=== PATIENT | female | born 1945 | race Caucasian/White ===

== ENCOUNTER 2016-09-30 17:18 | Inpatient (IN) | payer MEDICARE, MEDICAID ==
[~2016-09-30] VITALS: Ht 170.2 cm; Wt 107.2 kg
--- NOTE | ~2016-09-30 | HP ---
PATIENT'S NAME: NEGRA MANCINI [facility] AGE: 71 Y [address] ROOM: [id number] [place], [place] [address] LOCATION: GPCU ADMIT DATE: 09/30/2016 History & Physical DISCHARGE DATE: FAMILY PHYSICIAN: PHYSICIAN, UNKNOWN ATTENDING PHYSICIAN: SHILO HAINES V DATE OF SERVICE: CHIEF COMPLAINT: Dizziness, shortness of breath, constipation, and anuria. HISTORY OF PRESENT ILLNESS: The patient is a 71-year-old female with multiple medical problems further characterized below. They are most significant for atrial fibrillation, on anticoagulation and digoxin. The patient presented to the ER today with complaints of 2 days of decreased oral intake due to nausea, constipation, shortness of breath, as well as near-syncope. In the ER, the patient was found to have a potassium of 6.6, heart rate of 40s, with an EKG demonstrating junctional rhythm with slightly wide QRS and peaked T-waves and a digoxin level of 0.93. The patient has been seen by cage unloader Dr. Cohen and has also been treated by the ER department for her presentation. She has received IV insulin, dextrose, calcium gluconate, 2 g Digibind, 30 g of Kayexalate, and was started on normal saline. Her blood pressure was stable on admission and remained so now. She was initially anuric, but with placement of Sands and initiation of IV hydration, her urine output is picking up. Of note, the patient had a recent admission for a very similar presentation with digoxin toxicity, acute kidney injury, and symptomatic bradycardia. She says that she feels somewhat better though she is still quite weak, thirsty, and hungry. She denies any chest pain, vomiting, or diaphoresis associated with her presentation. REVIEW OF SYSTEMS: All 10 systems have been reviewed and are negative aside from pertinent positives mentioned above. PAST MEDICAL HISTORY: Type 2 diabetes, paroxysmal atrial fibrillation, on long-term anticoagulation, COPD with chronic hypoxic respiratory failure on 3 L of oxygen at all times, essential hypertension, and chronic diastolic congestive heart failure. PATIENT'S NAME: NEGRA MNACINI [facility] AGE: 71 Y [address] ROOM: [id number] [place], [place] [address] LOCATION: GPCU ADMIT DATE: 09/30/2016 History & Physical DISCHARGE DATE: FAMILY PHYSICIAN: PHYSICIAN, UNKNOWN ATTENDING PHYSICIAN: SHILO HAINES V PAST SURGICAL HISTORY: Significant for prior C-sections and total abdominal hysterectomy and oophorectomy. SOCIAL HISTORY: The patient was a heavy user of tobacco, but quit 5-6 years ago. No ongoing toxic habits. FAMILY HISTORY: Reviewed in detail and is noncontributory due to known underlying etiology for her presentation and advanced age and multiple medical problems. CURRENT MEDICATIONS: 1. Acetaminophen. 2. Amitriptyline. 3. Brovana. 4. Aspirin. 5. Bisacodyl. 6. Budesonide. 7. Bumex 1 mg daily. 8. Clonidine 0.1 mg b.i.d. 9. Digoxin 125. 10. Diphenhydramine 25. 11. Colace 100 twice a day. 12. Fluticasone nasal. 13. Guaifenesin. 14. Insulin by sliding scale. 15. Losartan. 16. Levemir 15 at bedtime. 17. Xopenex. 18. Magnesium oxide. 19. Meclizine. 20. Metoprolol 50 twice a day. 21. Singulair. 22. Nitroglycerin. 23. Olopatadine. 24. Polyethylene glycol. 25. Triamcinolone. 26. External solution. 27. Coumadin. PHYSICAL EXAMINATION: VITAL SIGNS: At this point, her heart rate is 41, blood pressure is 143/64, satting 99% on 2 L nasal cannula, afebrile, and respirations are 16. GENERAL: Appears as a chronically ill, elderly female, in no acute distress. PATIENT'S NAME: NEGRA MANCINI [facility] AGE: 71 Y [address] ROOM: [id number] [place], [place] [address] LOCATION: [facility] ADMIT DATE: 09/30/2016 History & Physical DISCHARGE DATE: FAMILY PHYSICIAN: PHYSICIAN, UNKNOWN ATTENDING PHYSICIAN: SHILO HAINES V NEUROLOGICAL: Exam is nonfocal. EYES: Exam shows pupils are equal and reactive to light. LYMPHATICS: Exam shows no cervical lymphadenopathy. ENDOCRINE: Exam shows no thyromegaly. LUNGS: Exam is diminished breath sounds in all [place], but no crackles. HEART: Exam reveals a profound bradycardia with no appreciable murmurs, gallops, or rubs. EXTREMITIES: There is 1+ bilateral lower extremity edema. SKIN: Warm and dry. PSYCHIATRIC: Reveals appropriate mood, cognition, and affect. MUSCULOSKELETAL: Exam is unremarkable. LABORATORY DATA: Studies available so far are pro-BNP is 1377, which is at baseline. Two sets of cardiac enzymes are negative. Potassium is 6.6, creatinine is 2.1. Unremarkable CBC. Digoxin level is 0.9. Chest x-ray shows chronic scarring, but no acute changes. EKG shows junctional bradycardia at 41 beats per minute with slight QRS widening and peaked T-waves in multiple leads. ASSESSMENT AND PLAN: This is a 71-year-old female who will be admitted with: 1. Symptomatic bradycardia due to digoxin toxicity. We will admit the patient to the Progressive Care Unit. We will monitor her heart rate. At this point, while she is symptomatic, her blood pressure is well- supported, and I do not believe she will benefit from a dopamine drip though that is an option for us if she becomes hemodynamically compromised. 2. Relative Digoxin toxicity in the setting of hyperkalemia. The patient has received Digibind. 3. Hyperkalemia/acute kidney injury. I think these are entirely related to acute volume depletion combined with multiple nephrotoxic medications including ARB and Bumex. The patient will be hydrated as her volume status tolerates. We will serially monitor her renal function and potassium. A Renal consultation is in progress and we will follow up those recommendations. 4. Atrial fibrillation. At this point, we will hold off all ruthy blockers including metoprolol and digoxin. 5. Long-term use of anticoagulation. We will continue the patient on Coumadin for the time-being and attempt for a normal therapeutic INR. 6. Chronic hypoxic respiratory failure. We will continue the patient on oxygen and her inhalers. 7. Type 2 diabetes. We will hold off on her long-acting insulin and put her on a sliding scale keeping in mind her diminished renal function. Additional management will depend on clinical course. Time dedicated to this patient encounter is 35 minutes. PATIENT'S NAME: NEGRA MANCINI [facility] AGE: 71 Y [address] ROOM: [place] [address] LOCATION: GPCU ADMIT DATE: 09/30/2016 History & Physical DISCHARGE DATE: FAMILY PHYSICIAN: PHYSICIAN, UNKNOWN ATTENDING PHYSICIAN: SHILO HAINES V MD ELIF MOREL/alicia /[id number] D: [id number] T: [id number] HISTORY & PHYSICAL
--- NOTE | ~2016-09-30 | DS ---
PATIENT'S NAME: NEGRA MANCINI [facility] AGE: 71 Y [address] ROOM: [place] [address] LOCATION: GPCU ADMIT DATE: 09/30/2016 Discharge Summary DISCHARGE DATE: 10/13/2016 FAMILY PHYSICIAN: Physician, Unknown ATTENDING PHYSICIAN: Gopal Gross V ATTENDING PHYSICIAN: David Ellison MD PRIMARY CARE PHYSICIAN: Saravanan Stevenson PA-C. FINAL DIAGNOSES: 1. Hyperkalemia, resolved. 2. Digoxin toxicity, resolved. 3. Atrial fibrillation, rate controlled. 4. Long-term anticoagulation. 5. Acute on chronic hypoxic respiratory failure, resolved. 6. History of chronic obstructive pulmonary disease. 7. Diabetes mellitus. 8. Decompensated diastolic congestive heart failure, resolved. 9. Pulmonary edema, resolved. 10. Acute kidney injury on chronic kidney disease 3, resolved. CONSULTATIONS: 1. Nephrology, Dr. Garcia. 2. Pulmonology, Dr. Oropeza. 3. Cardiology Dr. Clinton Anthony. PROCEDURES: None. REASON FOR ADMISSION: This is a 71-year-old female, who presented with dizziness, shortness of breath, constipation, and anuria. The patient was evaluated and was found to have symptomatic bradycardia. She was then thought to have digoxin toxicity and was further admitted for evaluation and management. Please see Dr. Gross' admission H and P for further details. DIAGNOSTIC STUDIES: A transthoracic echocardiogram was done during this admission showed ejection fraction of 65%. It showed grade 3 restrictive diastolic dysfunction, moderate concentric left ventricular hypertrophy, mildly dilated right ventricle, and dilated left atrium and right atrium were noted. Moderate aortic stenosis was noted as well. Mild to moderate tricuspid regurgitation and severe pulmonary hypertension with RVSP 62 mmHg noted. Trivial posterior pericardial effusion was detected. ABGs were done during this admission and showed hypercapnia with pCO2 of 77 initially and subsequently was 68, pO2 was 62 and subsequently 85. Serial PATIENT'S NAME: NEGRA MANCINI [facility] AGE: 71 Y [address] ROOM: [place] [address] LOCATION: GPCU ADMIT DATE: 09/30/2016 Discharge Summary DISCHARGE DATE: 10/13/2016 FAMILY PHYSICIAN: Physician, Unknown ATTENDING PHYSICIAN: Gopal Gross V Accu-Cheks were done and were in the range of 111 to 207. Serial CBC showed essentially normal white count, hemoglobin, hematocrit, and platelet levels throughout the course of this hospitalization. Serial BMPs were done. The patient's potassium was 6.6 on admission, after treatment was normal, and at the time of discharge stable at 4.0. Other electrolytes were normal. The patient's creatinine was 2.1 on admission, and the patient had acute kidney injury. The patient's acute kidney injury had resolved, and the patient's creatinine was 1.3 at the time of discharge. BUN was in the range of 26 to 36. Blood glucose is as mentioned above. Magnesium level 2.0. Liver function tests were normal. GFR 40 at discharge. Digoxin level was done on admission and was 0.93, subsequently digoxin level was 0.55. Digoxin was discontinued. Hemoglobin A1c 7.7. INR 1.96 on admission, and at the time of discharge was therapeutic at 2.17. PTT 38. UA showed rare bacteria. Urine creatinine random 295, urine sodium random of 9. Procalcitonin level 0.19 and subsequently was 0.11. Urine potassium 70.0. CK-MB 0.8. D-dimer 0.29. Chest x-ray was done on admission and several occasions during this admission. Chest x-ray showed enlargement of the cardiac silhouette, likely reflecting cardiomegaly or presence of pericardial fluid, vascular congestion with interstitial prominence, likely reflecting interstitial edema was noted. For increased oxygen demands, chest x-ray was repeated and showed worsening of radiographic appearance with findings of congestive heart failure, fluid overload with cardiac enlargement, vascular congestion, bilateral edema, and bilateral pleural fluid collection. The patient had a swallow study done, that showed no aspiration of swallowed materials and no significant retention of swallowed materials at the tongue base, vallecula, or piriform sinuses. X-ray abdomen was done for nausea and vomiting and showed no free air at the abdomen, nonspecific bowel gas pattern was noted. The bowel did not appear to be obstructed. Oral contrast material from prior imaging was noted in the bowel loops. The patient had a CT chest without contrast, that showed bilateral airspace lung disease likely infectious or edema. Cardiomegaly and bilateral pleural effusions were noted. Chest x-ray was later repeated and showed cardiomegaly, bilateral consolidation, and pleural effusion. Prior to discharge, chest x- ray was repeated again and showed improvement bilaterally with persistent abnormality, most likely reflecting fluid above. Blood cultures were drawn and were negative. Sputum culture showed many gram- positive cocci, many gram-positive rods, and many yeast with few gram-negative rods and rare epithelial cells. Normal respiratory joann was noted. Anaerobic culture was negative. PATIENT'S NAME: NEGRA MANCINI [facility] AGE: 71 Y [address] ROOM: [address] [address] LOCATION: GPCU ADMIT DATE: 09/30/2016 Discharge Summary DISCHARGE DATE: 10/13/2016 FAMILY PHYSICIAN: Physician, Unknown ATTENDING PHYSICIAN: Gopal Gross V [facility]: The patient was admitted for evaluation and management of dizziness, shortness of breath, and bradycardia. The patient was symptomatic at that point of time. She was thought to have digoxin toxicity and was given Digibind. She was also found to be hyperkalemic and was treated with calcium, normal saline, DuoNeb, and Lasix. The patient's junctional bradycardia then resolved. Cardiology was consulted and followed up with the patient. A transthoracic echocardiogram was done and findings are as above. The patient continued to do well from a cardiology standpoint. Her digoxin was discontinued and was not restarted. Her atrial fibrillation was rate controlled during this admission. The patient had anuria. Nephrology was consulted. Her urine output was closely monitored. She was placed on Lasix initially, subsequently she was placed on Diamox. She diuresed very well. Her chest x-ray had improved by the time of discharge. Her O2 requirement was at her baseline. There did not appear to be COPD exacerbation. This was likely acute diastolic CHF exacerbation. The patient also had acute kidney injury on admission. This was monitored very closely, and by the time of discharge, the patient's acute kidney injury had resolved. Her diuretic dose was adjusted given the acute kidney injury during this admission. Pulmonology was consulted. Dr. Oropeza thought that this was not likely COPD exacerbation. The patient's acute on chronic respiratory failure had improved, and she was down to her baseline of 3 L of oxygen. By the time of discharge, she was given breathing treatments during this admission. The patient continued to do well. She was ambulating with the help of a walker. She was then discharged and asked to follow up with her primary care physician. DISCHARGE INSTRUCTIONS: The patient discharged in a cardiac diet with 1800- kilocalorie ADA diet. Activities as tolerated. She uses a walker for assistance. Follow up with Saravanan Stevenson, PCP, in 2 to 3 days' time. Follow up with Clinton Anthony, Cardiology, in 2 weeks' time. Follow up with Dr. Oropeza in 1 month's time. Follow up with Nephrology, Dr. Garcia, in 1 week's time. The patient was discharged to home with Home Health. PCP to check a CBC and a BMP and a PT/INR. PCP to manage Coumadin based on PT/INR levels. O2 as needed to keep saturations 88% to 95%. The patient uses 3 L oxygen at all times at her baseline. DISCHARGE MEDICATIONS: Review of discharge medications: 1. Lopressor 12.5 mg p.o. b.i.d. 2. Lopressor 25 mg p.o. b.i.d., dose increased. PATIENT'S NAME: NEGRA MANCINI [facility] AGE: 71 Y [address] ROOM: [id number] [place] [id number] LOCATION: GPCU ADMIT DATE: 09/30/2016 Discharge Summary DISCHARGE DATE: 10/13/2016 FAMILY PHYSICIAN: , Melisa ATTENDING PHYSICIAN: Gopal Gross V 3. Digoxin was discontinued during this admission given digoxin toxicity. 4. Diamox 250 mg p.o. q.a.m. 5. Norvasc 10 mg p.o. daily. 6. Aspirin 81 mg p.o. daily. 7. Bumex 1 mg p.o. every 48 hours, dose decreased for acute kidney injury. PCP to manage and increase Bumex dose at followup given fluid volume status. 8. PCP also to consider discontinuing Diamox at followup. 9. Benadryl 25 mg p.o. q.h.s. 10. Colace 100 mg p.o. b.i.d. 11. Flonase 50 mcg 2 sprays nasally every day both nostrils. 12. Hydrocortisone cream one application topically 3 times daily p.r.n. hemorrhoids. 13. Guaifenesin 600 mg p.o. b.i.d. 14. NovoLog mild sliding scale insulin subcu before meals and at bedtime, new medication. 15. Levemir 10 units subcu every morning, dose decreased. 16. Ketotifen fumarate drops 1 drop ophthalmically every day both eyes. 17. Singulair 10 mg p.o. daily. 18. MiraLAX 17 g p.o. daily. 19. Coumadin 2.5 mg p.o. Wednesday, Wednesday, Wednesday. PCP to manage based on PT/INR levels. 20. Coumadin 2 mg p.o. Wednesday, Wednesday, , Wednesday. PCP to manage based on PT/INR levels. 21. Brovana inhalation twice daily one vial via nebulizer. 22. Pulmicort 1 vial inhalation twice daily 1 mg per 2 mL. 23. Spiriva HandiHaler 1 puff daily inhalation. 24. Tylenol 650 mg p.o. q.6 hours p.r.n. pain. 25. Meclizine 25 mg p.o. q.6 hours p.r.n. dizziness. 26. Xopenex HFA inhaler 45 mcg per inhalation 2 puffs inhalation twice daily p.r.n. shortness of breath. 27. Magnesium oxide 400 mg p.o. daily. 28. Elavil 50 mg p.o. q.h.s. 29. Nitrostat 0.4 mg sublingual as needed p.r.n. chest pain. 30. Triamcinolone cream 1 application topically twice daily p.r.n. rash on the hands. 31. Glucagon 1 mg subcu p.r.n. hypoglycemia. 32. Glucose tab 16 g p.o. p.r.n. hypoglycemia. This patient was managed by Hospitalist, Cardiology, Nephrology, and Pulmonology teams during this admission. DAVID ELLISON MD PATIENT'S NAME: NEGRA MANCINI [facility] AGE: 71 Y [address] ROOM: [place] [address] LOCATION: GPCU ADMIT DATE: 09/30/2016 Discharge Summary DISCHARGE DATE: 10/13/2016 FAMILY PHYSICIAN: Physician, Unknown ATTENDING PHYSICIAN: Gopal Gross V MT/modl /[id number] CC: Saravanan Stevenson PA-C d: 10/14/16 0401 t: 10/19/16 1818, DISCHARGE SUMMARY
--- NOTE | ~2016-09-30 | CON ---
PATIENT'S NAME: NEGRA MANCINI [facility] AGE: 71 Y [address] ROOM: [address] [place], [place] [address] LOCATION: GPCU ADMIT DATE: 09/30/2016 Consultation DISCHARGE DATE: FAMILY PHYSICIAN: PHYSICIAN, UNKNOWN ATTENDING PHYSICIAN: SHILO HAINES V DATE OF CONSULTATION: 09/30/2016 REFERRING PHYSICIAN: LV MORENO MD REFERRING PHYSICIAN: Shilo Haines MD. REASON FOR CONSULTATION: YESY, hyperkalemia, symptomatic bradycardia. HISTORY OF PRESENT ILLNESS: This 71-year-old female with history of atrial fibrillation, on long-term anticoagulation and digoxin; COPD; chronic respiratory failure on 2-3 L of oxygen at home; hypertension; diabetes type 2; presented to the ER with symptomatic bradycardia with heart rate in the 40s. Routine lab evaluation shows potassium of 6.6. Nephrology consultation has been called for hyperkalemia and symptomatic bradycardia. The patient had similar kind of presentation in late 2015 with digoxin toxicity and YESY. The patient was treated at that time conservatively along with Digibind antibody, the patient was placed on dopamine drip to increase the heart rate more than 50s; however, afterwards patient developed accelerated hypertension and needed management with multiple antihypertensive medications and the patient was discharged home. Today, the patient came with a creatinine of 2 with a baseline of 0.921. The patient mentioned that she was having nausea and vomiting and was having poor oral intake for the last few days, also noted that she is on Bumex 1 mg p.o. daily for fluid control secondary to her diastolic heart failure. She is also noted to be on lisinopril for blood pressure and possibly for heart failure too. During the presentation, her heart rate was in 40s with junctional rhythm with wide QRS and slightly peaked T-wave, but digoxin level was 0.93. The patient was being treated with IV insulin dextrose, calcium gluconate, and one vial of Digibind, 30 g of Kayexalate, and the patient was started on normal saline at 100 mL/hour. Urine output although was marginal in the beginning, but however started to pickle solution maker after initiation of IV hydration. During my evaluation, she says that she is feeling somewhat better; however, quite weak and hungry. No complain of chest pain, shortness of breath, orthopnea, palpitation, or any sign of fluid overload. Still has significant nausea, but no vomiting. No urinary symptoms including dysuria, urgency, frequency, but as mentioned above, she was having definitely decreased output at the time of presentation to the ER. REVIEW OF SYSTEMS: GENERAL: Feeling weak. No fevers, chills, or rigors. HEENT: No sore throat. No sinus congestion. CVS: No chest pain. No exertional shortness of breath. No leg swelling. RESPIRATORY: No shortness of breath. No cough. No wheezing. GENITOURINARY: No pain with urination. No increased frequency. No nocturia. GASTROINTESTINAL: No abdominal pain. No abdominal distention. Significant nausea, but no vomiting. NEUROLOGIC: No weakness. No seizures. SKIN: No rash. No itching. ALLERGIES: No seasonal allergy. No hayfever. ENDOCRINE: No heat intolerance. No cold intolerance. PSYCHIATRIC: No sadness. No crying spells. No history of panic attack. PATIENT'S NAME: NEGRA MANCINI [facility] AGE: 71 Y [address] ROOM: [address] [address] LOCATION: GPCU ADMIT DATE: 09/30/2016 Consultation DISCHARGE DATE: FAMILY PHYSICIAN: PHYSICIAN, UNKNOWN ATTENDING PHYSICIAN: SHILO HAINES V PAST MEDICAL HISTORY: 1. Hypertension. 2. Type 2 diabetes. 3. Paroxysmal atrial fibrillation, on long-term anticoagulation and digoxin. 4. COPD with chronic hypoxic respiratory failure on 2-3 L oxygen at home. 5. Chronic diastolic CHF. PAST SURGICAL HISTORY: Prior , abdominal hysterectomy and oophorectomy. SOCIAL HISTORY: She was a heavy smoker, stopped about 5-6 years ago. No ongoing smoking, alcohol, or IV drug abuse. FAMILY HISTORY: Noncontributory for kidney disease or any known dialysis. CURRENT MEDICATIONS: 1. Acetaminophen. 2. Amitriptyline. 3. Brovana. 4. Aspirin. 5. Bisacodyl. 6. Budesonide. 7. Bumex 1 mg daily. 8. Clonidine 0.1 mg b.i.d. 9. Digoxin 0.125 mg p.o. daily. 10. Diphenhydramine 25 daily. 11. Colace 100 twice a day. 12. Fluticasone nasal. 13. Guaifenesin. 14. Insulin by sliding scale. 15. Losartan. 16. Levemir. 17. Xopenex. 18. Magnesium oxide. 19. Meclizine. 20. Metoprolol 50 b.i.d. 21. Singulair. 22. Nitroglycerin. 23. Olopatadine. 24. Polyethylene glycol. 25. Triamcinolone. 26. External solution. 27. Coumadin. LABORATORY DATA: ProBNP 1377 at baseline. Cardiac enzyme negative x2. Potassium 6.6, creatinine 2.1. CBC unremarkable. Digoxin 0.9. Chest x-ray, chronic scarring, no acute changes. EKG junctional bradycardia at 41 beats per minute with slight QRS widening and peaked T-waves.PATIENT'S NAME: NEGRA MANCINI [facility] AGE: 71 Y [address] ROOM: [id number] [place] [id number] LOCATION: GPCU ADMIT DATE: 09/30/2016 Consultation DISCHARGE DATE: FAMILY PHYSICIAN: PHYSICIAN, UNKNOWN ATTENDING PHYSICIAN: SHILO HAINES V PHYSICAL EXAMINATION: VITAL SIGNS: Blood pressure 140's/60's, heart rate is in 40s, saturating 99% on 2 L, afebrile, respiratory rate 16 to 18. GENERAL: Not in apparent distress. HEAD: Moist mucous membranes. Bilateral PERRLA, EOMI. NECK: No JVD, thyromegaly or lymphadenopathy. CVS: S1 and S2 normal, regular rate and rhythm. No murmur, rub, gallop. CHEST: Bilateral air entry equal. No wheeze or rales. ABDOMEN: Soft, nontender, nondistended. Bowel sounds present. EXTREMITIES: No cyanosis, clubbing, jaundice. No dependent edema. MUSCULOSKELETAL: No limitation of range of motion. SKIN: No pallor, cyanosis, icterus. BOX REPAIRER: Alert and oriented x3. No gross findings.. ASSESSMENT AND PLAN: 1. Symptomatic bradycardia possibly due to digoxin toxicity. Although, digoxin level was not above the acceptable range but with hyperkalemia, the patient can present with the digoxin toxicity. The patient already has received Digibind in the ER, hemodynamically stable. The patient needs continuous cardiac monitoring and telemetry. We will hold off from dopamine drip as patient is hemodynamically stable. 2. Hyperkalemia with acute kidney injury, possibly secondary to prerenal along with ORESTES-blocking agent while being tried with poor p.o. oral intake and diuretic on board. We will hydrate the patient with 1 L fluid bolus now and maintaining the fluid at 100 mL/h. We may repeat the bolus, if the urine output does not pickle solution maker sufficiently. Once the patient is adequately hydrated, we may try to give rather heavy dose of loop diuretic to help in calluses. The patient needs to have close monitoring of the potassium and renal function, with repeat her renal panel at least every six hourly. I do not see any reason for dialysis at this point, because the patient is making some urine, appears to be dry and unclear kidney function. Her creatinine is currently 2, so probably the patient will improve with adequate volume resuscitation and conservative management. 3. Atrial fibrillation. Hold off all AV ruthy blocking agent. Especially in context of significant bradycardia and junctional rhythm. Long-term anticoagulation, the patient is on Coumadin for the time being, please check INR. 4. Chronic obstructive pulmonary disease with chronic hypoxic respiratory failure. We will continue to do 3 L of oxygen and inhalers as needed. 5. Type 2 diabetes. Long-acting insulin has been put on hold by the primary team and has been placed on a sliding scale. We will defer that to primary. Thank you for allowing me to participate in this patient's care. We will closely monitor the patient's progress along with you. HISEKH JENNIFER CARBAJAL MD /modl /[id number] d: 10/01/16 1824 t: 10/05/16 1539, CONSULTATION REPORT
--- NOTE | ~2016-09-30 | CON ---
PATIENT'S NAME: NEGRA MANCINI [facility] AGE: 71 Y [address] ROOM: [address] [place], [place] [address] LOCATION: GPCU ADMIT DATE: 09/30/2016 Consultation DISCHARGE DATE: FAMILY PHYSICIAN: PHYSICIAN, UNKNOWN ATTENDING PHYSICIAN: SHILO HAINES V DATE OF CONSULTATION: 09/30/2016 REFERRING PHYSICIAN: LV MORENO MD REQUESTING PROVIDER: Dr. Andrade from the ER. REASON FOR CONSULTATION: Hyperkalemia. HISTORY OF PRESENT ILLNESS: The patient actually sees Dr. Anthony and I am seeing the patient because I am on-call today. She is a very pleasant 71-year-old female, who has history of bradycardia as well as dizziness in the past. She also has history of paroxysmal atrial fibrillation. She has had numerous admissions for digoxin toxicity in the past. She comes in today because she is feeling slightly short of breath, worse than her baseline. She also complains of feeling dizzy, inability to void, and nausea as well as constipation. She reports feeling quite fatigued and finally decided to come to the ER because she has not had any urine output. She did not take her Bumex today. She is on Coumadin for anticoagulation. Her last admission was in March 2016 when she was admitted with digoxin toxicity and her level at that time was 4.97, potassium was 5.6, she was given Digibind and dopamine to help keep her heart rate up. This admission, she comes in again and the clinical suspicion is digoxin toxicity given hyperkalemia, acute renal failure, and junctional escape rhythm in the 30s. We will empirically treat her with Digibind based on chronic level of 1, for which 40 mg of Digibind is recommended. She has been treated for hyperkalemia and received calcium gluconate as well as Kayexalate, albuterol inhaler in the emergency room, and her heart rate now is in the 40s. She is alert and oriented. She is not in any apparent distress. She does not seem confused. She is hemodynamically stable. She also has history of oxygen-dependent COPD as well as diastolic heart failure, morbid obesity, CKD stage III, history of TIA, and pulmonary hypertension as well. No fevers, chills, or rash. No cough or sputum production. No PND, worsening lower extremity, or orthopnea. PATIENT'S NAME: NEGRA MANCINI [facility] AGE: 71 Y [address] ROOM: [place] [id number] LOCATION: GPCU ADMIT DATE: 09/30/2016 Consultation DISCHARGE DATE: FAMILY PHYSICIAN: PHYSICIAN, UNKNOWN ATTENDING PHYSICIAN: SHILO HAINES V Her primary care physician actually restarted her on digoxin 125 mcg daily. REVIEW OF SYSTEMS: A 10-point review of systems discussed with the patient. Pertinent positives and negatives as mentioned in the history of presenting illness. PAST MEDICAL HISTORY: 1. Chronic permanent atrial fibrillation, on long-term anticoagulation with Coumadin. 2. Diastolic CHF. 3. COPD, O2 dependent. 4. Morbid obesity. 5. CKD stage III. 6. History of TIA. 7. History of pulmonary hypertension. 8. Essential hypertension. 9. Long-term anticoagulation with warfarin. 10. Bilateral hearing loss. PAST SURGICAL HISTORY: Appendectomy, T and A, , total abdominal hysterectomy, bilateral oophorectomy at age 41, fractured left toe and collarbone, and history of cardioversion in 2013. ALLERGIES: PENICILLIN, TETRACYCLINE, LASIX, QUINOLONES, KIWIS, BANANAS, AND AVOCADOS. HOME MEDICATIONS: 1. Tylenol p.r.n. 2. Amitriptyline 100 daily. 3. Brovana inhalers 2 times a day 2 puffs. 4. Aspirin 81 daily. 5. Bisacodyl 10 p.r.n. 6. Bumex 1 mg b.i.d. 7. Clonidine 0.1 mg b.i.d. 8. Digoxin 125 mcg daily. 9. Benadryl p.r.n. at bedtime. 10. Docusate 200 mg daily. 11. Fluticasone nasal inhaler 2 sprays in each nostril. 12. Guaifenesin 1 b.i.d. 13. Insulin p.r.n. per sliding scale. 14. Losartan 100 daily. 15. Insulin Levemir 15 units at bedtime. 16. Mag-Ox once daily. PATIENT'S NAME: NEGRA MANCINI [facility] AGE: 71 Y [address] ROOM: [place] [id number] LOCATION: GPCU ADMIT DATE: 09/30/2016 Consultation DISCHARGE DATE: FAMILY PHYSICIAN: PHYSICIAN, UNKNOWN ATTENDING PHYSICIAN: SHILO HAINES V 17. Meclizine p.r.n. 18. Metoprolol 25 mg p.o. b.i.d. 19. Singulair 10 mg daily. 20. Nitroglycerin sublingual p.r.n. 21. Olopatadine ophthalmic eye solution daily. 22. Oxygen 3 L per nasal cannula. 23. MiraLax p.r.n. 24. Triamcinolone 17 g p.r.n. 25. Warfarin 2.5 mg daily. SOCIAL HISTORY: Former smoker, she smoked for 20 years, she quit in 2011. She is . FAMILY HISTORY: Father of an IA at age 64. No sudden cardiac . PHYSICAL EXAMINATION: VITAL SIGNS: Blood pressure is 151/63, weight is 112, pulse is 42, respirations 24, afebrile, and O2 saturation 99% on 2 L. NECK: Supple. HEENT: Eyes: No jaundice. White. Head: Atraumatic. HEART: S1 and S2. Bradycardic. No murmurs, gallops, or rubs. LUNGS: Clear to auscultation bilaterally. ABDOMEN: Soft. Obese. EXTREMITIES: Mild lower extremity edema. NEURO: Grossly intact. Able to move all extremities against gravity. Alert and oriented x3. No apparent distress. PSYCH: Appropriate mood. IMAGING: Echocardiogram from January 2016 showed normal LV systolic function, 60% to 65%. Moderate diastolic dysfunction. Mild aortic valve stenosis. Left atrium moderately dilated. LABORATORY DATA: Sodium 135, potassium 6.6, chloride 100, CO2 of 27, glucose 146, BUN 34, and creatinine 2.1. EGFR is 23. Digoxin level is 0.93. ProBNP 1377. CPK 32. CK-MB 0.8. Troponin I less than 0.04. WBC is 10.9, H and H are 10 and 35.2, and platelets are 222. INR is 1.96. IMPRESSION: 1. Junctional bradycardia in the setting of acute on chronic renal failure as well as hyperkalemia with a level of 6.6 with associated nausea, decreased urine output, and dehydration. Pt has digoxin toxicity. PATIENT'S NAME: NEGRA MANCINI [facility] AGE: 71 Y [address] ROOM: [address] [place], [place] [address] [facility] ADMIT DATE: 09/30/2016 Consultation DISCHARGE DATE: FAMILY PHYSICIAN: PHYSICIAN, UNKNOWN ATTENDING PHYSICIAN: SHILO HAINES V 2. Digoxin toxicity. 3. Dehydration. 4. History of chronic diastolic congestive heart failure, does not appear to be volume overloaded on exam. 5. Acute on chronic renal failure. 6. Paroxysmal atrial fibrillation. 7. Long-term anticoagulation with Coumadin. 8. History of pulmonary hypertension. 9. Mild aortic valve stenosis. PLAN: 1. At this time, we will treat her with digoxin toxicity based on her level of 0.93 and her weight and chronic toxicity. The dose of the Digifab is 40 mg IV, so we will go ahead and give that over 30 minutes. In terms of hyperkalemia, the ER physician has already corrected it with calcium gluconate as well as albuterol inhaler and Kayexalate. Recommend Nephrology consultation for acute on chronic renal failure. 2. She appears dehydrated. I will give her normal saline 100 mL for 1 L and recheck her labs in a.m. I do not think she needs temporary pacemaker at this time given her hemodynamic stability as well as her presentation, she is alert and oriented, and is not exhibiting any instability from her junctional rhythm in the 40s. I suspect all of this will improve once she gets her Digibind as well as her potassium levels are corrected. Thank you very much for allowing us to participate in the care of Ms. Mancini. We will continue to follow her. REYNALDO KAT MD AT/modl /[id number] d: 10/01/166 t: 10/02/16 1410, CONSULTATION REPORT
--- NOTE | ~2016-09-30 | CON ---
PATIENT'S NAME: PETTY MAYTE [facility] AGE: 71 Y [address] ROOM: [address] [place], [place] [address] LOCATION: GPCU ADMIT DATE: 09/30/2016 Consultation DISCHARGE DATE: 10/13/2016 FAMILY PHYSICIAN: Physician, Unknown ATTENDING PHYSICIAN: Gopal Gross V DATE OF CONSULTATION: 10/06/2016 REFERRING PHYSICIAN: Marlon Green MD INDICATION: Acute on chronic respiratory failure with COPD and pulmonary hypertension. HISTORY OF PRESENT ILLNESS: This 71-year-old female initially admitted for dehydration, nausea, digitoxicity, and bradycardia. She was rehydrated because of the aforementioned issues and is now requiring BiPAP. She was initially brought in on nasal cannula and then transferred to [facility] and then now subsequently BiPAP. Of note, the patient did receive Xanax and Haldol on top of the fluid resuscitation yesterday. She has a history of COPD and is a former smoker at one pack per day for 25 years and quit 6 years ago. She also has a history of atrial fibrillation with long-term anticoagulation; obesity; chronic respiratory failure for years with typically uses 3 L per nasal cannula continuously; severe pulmonary hypertension with last RVSP known at 62, EF is 65%, and aortic stenosis. It is also documented that she has cor pulmonale with dilated right ventricle and bilateral atrial enlargement. Currently, the patient reports increased shortness of breath over the last 2 weeks. She has had occasional dry cough, but is nothing worse than her baseline. She denies any wheezing, hemoptysis, or edema. She denies any history of PFTs. A CT of the chest in 2014 showed a 3 mm nodule in the left upper lobe and bilateral apical scarring. Chest x-ray on the showed diffuse pulmonary edema with bilateral pleural effusions. PAST MEDICAL HISTORY: Type 2 diabetes; paroxysmal atrial fibrillation, on long-term anticoagulation; COPD; chronic respiratory failure; hypertension; diastolic heart failure; cor pulmonale; and pulmonary hypertension. ALLERGIES: SEE AUG. MEDICATIONS: See AUG. FAMILY HISTORY: Negative for lung disease or heart disease. PATIENT'S NAME: PETTY MAYTE [facility] AGE: 71 Y [address] ROOM: [address] [address] LOCATION: GPCU ADMIT DATE: 09/30/2016 Consultation DISCHARGE DATE: 10/13/2016 FAMILY PHYSICIAN: Physician, Unknown ATTENDING PHYSICIAN: Gopal Gross V SOCIAL HISTORY: The patient was a former smoker and quit 6 years ago. She denies any alcohol or illicit drug use. REVIEW OF SYSTEMS: A 12-point review of systems negative except what is noted in the HPI. PHYSICAL EXAMINATION: VITAL SIGNS: Blood pressure 130/63, pulse 60, respirations 24, and temperature 99.2. Her weight is 117.2 kilos and on admission she was 114.8 kilos. I and O balance is slightly negative. She is currently on 6 L nasal cannula at 92%. GENERAL: This is a 71-year-old female, who is alert, oriented, appears in no acute distress at the time of exam. HEENT: Head normocephalic and atraumatic. Eyes clear. NECK: Supple. No adenopathy. No carotid bruits or JVD. LUNGS: Decreased breath sounds at the bases. HEART: Irregular rate and rhythm with a 2/6 systolic murmur. ABDOMEN: Soft, nontender, and nondistended. Bowel sounds x4. EXTREMITIES: No cyanosis or clubbing with 1+ bilateral lower extremity edema. DIAGNOSTIC DATA: ABG performed on the showed a pH of 7.29, pCO2 of 77, pO2 of 62, bicarb 37, and base excess 7.8. Repeat ABG after BiPAP shows a pH of 7.37, pCO2 of 68, pO2 of 85, bicarb 39.3, and base excess 11.4. Sodium 136, potassium 4.4, CO2 of 32, BUN 42, and creatinine 1.4. WBC 9.2, hemoglobin 8.4, hematocrit 28.8, and platelets 206. Albumin 2.2. ProBNP 2603. ASSESSMENT: 1. Acute on chronic hypercapnic respiratory failure with underlying chronic obstructive pulmonary disease, question severity, plus pulmonary hypertension and fluid overload. 2. Chronic obstructive pulmonary disease with unknown severity. 3. Pulmonary hypertension, most likely on into left heart disease. 4. Metabolic alkalosis, compensatory secondary to contraction. 5. Acute on chronic diastolic heart failure. PLAN: Would recommend continuing with aggressive IV diuresis. We will add IV Diamox today and start oral Diamox tomorrow. During this exam, we did have her weaned from BiPAP to nasal cannula and she seems to be tolerating this well. We will continue with BiPAP at night and as needed for increased shortness of breath or work of breathing. No antibiotics or steroids are needed as she does not appear to have COPD exacerbation. Recommend continuing with PATIENT'S NAME: NEGRA MANCINI [facility] AGE: 71 Y [address] ROOM: [place] [address] LOCATION: GPCU ADMIT DATE: 09/30/2016 Consultation DISCHARGE DATE: 10/13/2016 FAMILY PHYSICIAN: Physician, Unknown ATTENDING PHYSICIAN: Gopal Gross V budesonide, Brovana, Spiriva, and Xopenex as previously ordered. Further recommendations will be made pending the course of her stay. Thank you for the consult and opportunity to participate in the patient's care. RANCHO TORRE APRN FOR [employer] RHOADES MD MR/modl /[id number] d: 11/04/16 0111 t: 11/24/16 1400, CONSULTATION REPORT
--- NOTE | ~2016-09-30 | ER ---
PATIENT'S NAME: NEGRA MANCINI [facility] AGE: 71 Y [address] ROOM: [place] [address] LOCATION: GPCU ADMIT DATE: 09/30/2016 ER/Outpatient Report DISCHARGE DATE: FAMILY PHYSICIAN: PHYSICIAN, UNKNOWN ATTENDING PHYSICIAN: SHILO HAINES V Admission date and time documented in the medical record. I saw the patient when I came on duty at shift change at 1810 hours. CHIEF COMPLAINT: Shortness of breath, inability to void, and constipation. HISTORY OF PRESENT ILLNESS: The patient is a 71-year-old female, who has not been able to urinate since 0930 hours this morning. Has been unstable, dizzy. She has shortness of breath, but no chest pain. Feels constipated. She does have COPD, O2 dependent as well as insulin-dependent diabetes mellitus. Chronically anticoagulated with Coumadin because of atrial fibrillation. No recent colds, coughs, flus, fever, chills, or sweats. No syncope. No fall or trauma. No headache, eyes, ears, nose, throat, neck, or spine pain. No abdominal pain, nausea, vomiting, or diarrhea. No joint or muscle swelling, redness, or pain. No skin eruptions or rash. Does have insulin-dependent diabetes mellitus. No other endocrine problems. Does have depression or anxiety, but no psychosis. No neuro changes. HOME MEDICATIONS: See attached medication list. ALLERGIES: LEVAQUIN, TETRACYCLINE, AND PENICILLIN. SOCIAL HISTORY: Nonsmoker. Nondrinker. SIGNIFICANT PAST MEDICAL HISTORY: COPD, O2 dependent; atrial fibrillation; insulin-dependent diabetes mellitus type 2; hypertension; chronic anticoagulation; vitamin D deficiency; exogenous obesity; depression; anxiety; dyslipidemia; iron deficiency anemia; chronic kidney disease; and remote tobacco abuse. OPERATIONS: and hysterectomy. REVIEW OF SYSTEMS: All systems reviewed by me are negative with the exception of those discussed PATIENT'S NAME: NEGRA MANCINI [facility] AGE: 71 Y [address] ROOM: [address] [place] [id number] LOCATION: GPCU ADMIT DATE: 09/30/2016 ER/Outpatient Report DISCHARGE DATE: FAMILY PHYSICIAN: PHYSICIAN, UNKNOWN ATTENDING PHYSICIAN: SHILO HAINES V in the history of present illness. PHYSICAL EXAMINATION: VITAL SIGNS: Temperature 97.8 tympanic, pulse 42, respirations 24, blood pressure 151/63, and O2 saturation on 2 L of oxygen per nasal cannula is 99%. HEAD: Normocephalic. EYES, EARS, NOSE, THROAT: Clear. NECK: Negative. LUNGS: Clear. No rales, rhonchi, or wheezes. HEART: Regular. Bradycardic. Pulses palpable. No chest wall or ribcage pain to palpation. ABDOMEN: Mildly obese, soft, nondistended, and nontender. Good bowel tones. No organomegaly or abnormal mass palpable. EXTREMITIES: With some peripheral edema, nonpitting. No cyanosis. No deformity. NEUROVASCULAR: Intact. SKIN: Clear. No skin eruptions or rash. LABORATORY DATA AND X-RAYS: EKG shows what looks like a junctional rhythm, bradycardia, some ST-T depression. Chest x-ray shows cardiomegaly, increased vascular congestion, left pleural effusion. We will review x-ray with the radiologist. CMS was normal except for an elevated potassium of 6.6, elevated glucose of 146, elevated BUN of 34, elevated creatinine of 2.1, low GFR of 23, magnesium was 2.3, and CPK was 32. Point of care cardiac enzymes were normal. White count was 10,900, 80 segs, 9 lymphs, 9 monos, hemoglobin was 10.2, hematocrit 35.2, and platelet count was 222,000. PTT was 38, pro-time was 20.7, INR 1.96, Lanoxin 0.93. Urine showed 5 to 10 whites, rare reds, 10 to 20 epithelial cells, rare bacteria, and 3+ amorphous material per high-powered field. EMERGENCY DEPARTMENT COURSE: In view of the patient's hyperkalemia, we did start her on Kayexalate 30 grams orally in the emergency department, regular insulin 10 units IV plus one amp of D50 IV in the emergency department, albuterol nebulizer therapy in the emergency department, and 1000 mg of calcium gluconate 10% IV in the emergency department. I did keep her on oxygen. I did discuss the patient with Dr. Green, hospitalist. IMPRESSION: 1. Hyperkalemia with a potassium of 6.6, etiology uncertain. 2. Bradycardia. It looks like a junctional bradycardia at a rate of about 35. 3. Chronic obstructive pulmonary disease, O2 dependent with shortness of breath. 4. Atrial fibrillation by history with chronic anticoagulation using PATIENT'S NAME: NEGRA MANCINI [facility] AGE: 71 Y [address] ROOM: [address] [place], [place] [address] [facility] ADMIT DATE: 09/30/2016 ER/Outpatient Report DISCHARGE DATE: FAMILY PHYSICIAN: PHYSICIAN, UNKNOWN ATTENDING PHYSICIAN: SHILO HAINES V Coumadin. 5. Insulin-dependent diabetes mellitus type 2. 6. Hypertension. 7. Dyslipidemia. 8. Remote tobacco use history. PLAN: Dr. Green did want the patient in PCU telemetry. We will admit the patient to the hospital. I did start the patient again on Kayexalate insulin with D50 IV therapy, albuterol nebulizer therapy, 1000 mg of calcium gluconate IV. Discussion ensued with the patient concerning my findings and recommendations, she understands. Accumulated critical care time 30 minutes. MD CELESTINO KELLOGG/modl /[id number] d: 10/01/16 0059 t: 10/03/16 0607, OUTPATIENT REPORT
--- NOTE | ~2016-09-30 | ER ---
PATIENT'S NAME: [facility] AGE: 71 Y [address] ROOM: [place] [address] LOCATION: GPCU ADMIT DATE: 09/30/2016 ER/Outpatient Report DISCHARGE DATE: FAMILY PHYSICIAN: PHYSICIAN, UNKNOWN ATTENDING PHYSICIAN: SHILO HAINES V Time of Arrival: 1718 hours. Time Seen: 1725 hours. IDENTIFICATION: A 71-year-old female. CHIEF COMPLAINT: Illness. HISTORY OF PRESENT ILLNESS: The patient is a 71-year-old female from [place], brought in by ambulance. She has been unable to void, and feels real full and distended in her abdomen. She is dizzy and things seem to feel like are "rocking." She is short of breath and she also has constipation. ALLERGIES: LEVAQUIN, TETRACYCLINE, AND PENICILLIN. CURRENT MEDICATIONS: Please refer to the med recon. Her medication list does include digoxin and then her Bumex, she did not take today. MEDICAL PROBLEMS: Diabetes mellitus type 2, atrial fibrillation on chronic anticoagulation of Coumadin, hypertension, COPD on chronic O2 at 3 L at home, chronic diastolic congestive heart failure. PRIOR SURGERIES: Hysterectomy, sections. SOCIAL HISTORY: The patient has a remote history of tobacco use, none currently. She lives in [place]. She does live in her own home. Alcohol use, denies. REVIEW OF SYSTEMS: All systems reviewed and negative other than what is noted in the HPI. PHYSICAL EXAMINATION: VITAL SIGNS: Weight 112 kg, blood pressure 151/63, pulse 42, respirations 24, PATIENT'S NAME: [facility] AGE: 71 Y [address] ROOM: [place] [id number] LOCATION: GPCU ADMIT DATE: 09/30/2016 ER/Outpatient Report DISCHARGE DATE: FAMILY PHYSICIAN: PHYSICIAN, UNKNOWN ATTENDING PHYSICIAN: SHILO HAINES V temperature 97.3, and saturations 99%. GENERAL: A 71-year-old female, who is uncomfortable with abdominal distention and feeling like she needs to empty her bladder. HEENT: Head normocephalic, atraumatic. Ears: TMs not visualized. Eyes: Pupils equal and reactive to light and accommodation. Extraocular movements intact. Nose: Mucosa pink. No lesions. Mouth: No lesions. Pharynx benign. NECK: Supple. No lymphadenopathy. LUNGS: Clear to auscultation. LUNGS: Clear to auscultation. Diminished breath sounds in the right base. HEART: Sinus bradycardia. ABDOMEN: Protuberant, soft, slightly distended. Diffusely tender to palpation, particularly in the epigastric region and suprapubic region. No rebound or guarding. No CVA tenderness. SKIN: [place], warm, and dry. No lesions or rashes noted. EXTREMITIES: Lower extremities, she does have 1+ lower extremity edema. No calf tenderness. NEUROLOGIC: Alert oriented x4. Cranial nerves II through XII grossly intact. Motor strength 5/5 throughout. Sensation is intact to light touch. DIAGNOSTIC STUDIES: Bladder scan showed no urine in the bladder. Sands catheter was placed with only 35 mL of output. Acute coronary syndrome. Labs and x-ray were ordered. Accu-Chek, D-dimer, proBNP, dig level, and cath UA. EKG shows bradycardia, probable junctional rhythm at 36 beats per minute. Diffuse ST-T wave changes. Scooped out appearance. It is shift change at this time and Dr. Andrade will assume care. BIGG FERNANDES MD CAR/alicia /[id number] d: 10/01/16 0642 t: 10/02/16 0800, OUTPATIENT REPORT
--- NOTE | ~2016-09-30 | DS ---
PATIENT'S NAME: NEGRA MANCINI [facility] AGE: 71 Y [address] ROOM: [address] [place], [place] [address] LOCATION: GPCU ADMIT DATE: 09/30/2016 Discharge Summary DISCHARGE DATE: FAMILY PHYSICIAN: Physician, Unknown ATTENDING PHYSICIAN: Gopal Gross V INTERIM DISCHARGE SUMMARY PRINCIPAL DIAGNOSES: 1. Bradycardia. 2. Digitoxicity. 3. Acute kidney injury. 4. Acute on chronic diastolic congestive heart failure exacerbation. 5. Acute on chronic hypoxic and hypercapnic respiratory failure. 6. Atrial fibrillation with RVR. 7. Hypertension. 8. Diabetes type 2. HOSPITAL COURSE: Please refer to the admission H and P for details of presenting illness. This is a 71-year-old female with multiple comorbidities including grade 2 diastolic CHF and paroxysmal atrial fibrillation, presented with bradycardia and elevated digoxin level as well as YESY. The patient's presenting bradycardia was attributed to digitoxicity relating to her YESY. The patient was given a dose of Digibind and closely monitored, and her heart rate improved from then on. The patient was also noted to be severely short of breath, requiring over 6 L of oxygen as well as physically being in respiratory distress, and this is mostly attributed to volume overload. The patient had been diuresing for the past several days, giving good urine output with her kidney function holding up nicely. The patient today has shown significant improvement with her respiratory status. She is currently on Bumex 1 mg p.o. daily. Her creatinine is stable around 1.1 as well. The patient is to be discharged home on a beta suzanna to manage her rate, but she is to discontinue digoxin indefinitely. The rest of her hospital stay is to be documented by the discharging physician. MD TRACY LIZARRAGA/alicia /[id number] d: 10/12/16 0127 t: 10/26/16 1202, DISCHARGE SUMMARY
--- NOTE | ~2016-09-30 | ECHO ---
Transthoracic Echocardiography Report (TTE) Demographics Patient Name NEGRA MANCINI Date of Study 10/05/2016 Patient Number [id number] Visit Number [id number] Date of 1945 Room Number G6327 Accession Number [id number] Gender Female Age 71 year(s) Referring Renato Herron V Gut Puller Nancy Plascencia RVT, Physician MD CHAPO Landeros MD Physician Interpreting Gabrielle Alonzo MD Business Strategist Physician Supervising Ordering Physician Pancho Higginbotham MD/GINA GARRETT Nurse Stress Radio Dispatcher Conclusions Contractility Score Summary Normal Left Ventricular contractility was noted. Summary The estimated left ventricular ejection fraction is 65%. The left ventricle is normal in size . Moderate concentric left ventricular hypertrophy. Diastolic assessment reveals Grade III restrictive diastolic dysfunction. Mildly dilated right ventricle. The left atrium is severely dilated. The right atrium is moderately dilated. Unable to visualize IVC due to poor subcostal windows. There is moderate aortic stenosis by the Continuity Equation. The peak velocity is 3.4 m/s, the mean gradient is 22 mmHg, and the valve area based on the continuity equation is 1.25 cm2, stroke volume index is 40.46 ml/m2. Mild-moderate tricuspid regurgitation by color Doppler. There is severe pulmonary hypertension. The pulmonary pressure (RVSP) is 62 mmHg. Trivial posterior pericardial effusion. Procedure Type of Study TTE procedure:2D Echocardiogram, M-Mode, Doppler , Color Doppler. Procedure Date Date: 10/05/2016 Start: 07:56 AM Study Location: Inpatient Portable Technical Quality: Fair due to body habitus. Indications:Shortness of breath and CHF. Appropriate Use Criteria: 9 Patient Status: Routine HR: 68 bpm BP: 170/59 mmHg M-Mode/2D Measurements LV Diastolic Dimension: 4.72 cm LV Systolic Dimension: 3.06 cm LV Septum Diastolic: 1.38 cm LV PW Diastolic: 1.47 cm AO Root Dimension: 2.7 cm Cardiac Output: 6.11 l/min AV Cusp Separation: 1.4 cm RV Diastolic Dimension: 3.18 cm LA volume: 88 ml LVOT: 1.9 cm RV Base: 4.46 cm LVOT VTI: 31.7 cm RV Mid: 3.31 cm LV Stroke volume: 89.83 ml TAPSE: 1.79 cm TDI-S': 11.8 cm/s Doppler Measurements AV Peak Velocity: 3.4 m/s MV Peak E-Wave: 1.72 m/s AV Peak Gradient: 46.24 mmHg MV Peak A-Wave: 0.36 m/s AV Mean Gradient: 22 mmHg MV E/A Ratio: 4.75 LVOT Peak Velocity: 1.71 m/s MV Deceleration Time: 225 msec TR Velocity:3.66 m/s PV Peak Velocity: 1.16 m/s TR Gradient:53.58 mmHg PV Peak Gradient: 5.38 mmHg Estimated RAP:8 mmHg Estimated PASP: 61.58 mmHg Estimated RVSP: 62 mmHg A' Septal Velocity: 0.03 m/s E' Septal Velocity: 0.05 m/s A' Lateral Velocity: 0.06 m/s E' Lateral Velocity: 0.07 m/s Findings Left Ventricle The left ventricle is normal in size . Moderate concentric left ventricular hypertrophy. Diastolic function indeterminate due to patient's arrhythmia. Right Ventricle Mildly dilated right ventricle. Normal right ventricular function. Left Atrium The left atrium is severely dilated. Right Atrium The right atrium is moderately dilated. Unable to visualize IVC due to poor subcostal windows. Mitral Valve Mild mitral annular calcification. Mild mitral regurgitation by color Doppler. Aortic Valve There is moderate aortic stenosis by the Continuity Equation. The peak velocity is 3.4 m/s, the mean gradient is 22 mmHg, and the valve area based on the continuity equation is 1.25 cm2, stroke volume index is 40.46 ml/m2. Tricuspid Valve Normal tricuspid valve structure and function. Mild-moderate tricuspid regurgitation by color Doppler. There is severe pulmonary hypertension. The pulmonary pressure (RVSP) is 62 mmHg. Pulmonic Valve The pulmonic valve is not well visualized. Pericardial Effusion Trivial posterior pericardial effusion. Miscellaneous Visualized portions of the aortic root and ascending aorta appear normal in size. Pleural Effusion No evidence of pleural effusion. Contractility Score LV regional wall motion:(0-Non visualized 1-Normal 2-Hypokinesis 3-Akinesis 4-Dyskinesis 5-Aneurysm) Signature dtt: Clinton Anthony (cardio) dtd: 10/05/16 0756 Physician Self Edit
[~2016-09-30 17:18] MED LIST: ADVAIR 250-501 EACH INH; ADVIL200 MG PO; APRESOLINE10 MG PO; ASPIRIN LO-DOSE81 MG PO; BENADRYL25 MG PO; BUMEX1 MG PO; CALAN SR GENER120 MG PO; CATAPRES0.1 MG; COLACE100 MG PO; COUMADIN **IA2.5 MG PO; COZAAR100 MG; COZAAR100 MG PO; DELTASONE10 MG PO; DELTASONE20 MG PO; DELTASONE5 MG PO; DRISDOL50000 UNIT PO; ELAVIL50 MG PO; EXPECTORANT200 MG PO; FERGON325 M1 PO; GLUCOPHAGE XR500 M1 PO; IPRAT-ALBUT 0.5-3 ML INH; JANUVIA 100 MG100 MG PO; LANOXIN (DIGI125 MCG; LEVEMIR100 UNIT/1 SUB-Q; LOPRESSOR25 MG PO; MAG-OX-400(241400 MG PO; MECLIZINE HCL25 MG PO; MIRALAX17 GM PO; NORVASC10 MG PO; OSCAL + D500 MG PO; SINGULAIR10 MG PO; SPIRIVA HANDIHA1 KIT INH; SYMBICORT 16010.2 GM INH; TYLENOL325 MG PO; XOPENEX HF45 MCG/INH INH
[2016-09-30 17:51] LABS: BASOPHIL % 0.3 %; EOSINOPHIL # 0.1 K/uL (0.0-0.5); HEMATOCRIT 35.2 % (33.0-46.0); HEMOGLOBIN 10.2 g/dL (10.0-15.0); IMMATURE GRANULOCYTE # 0.1 K/uL (0.0-0.3); IMMATURE GRANULOCYTE % 0.8 %; LYMPHOCYTE % 8.7 %; MCH 23.2 pg (27.0-34.0); MPV 10.2 fl (9.4-12.4); NEUTROPHIL # (ANC) 8.8 K/uL (1.8-7.8); NEUTROPHIL % 80.2 %; NRBC % 0 /100WBC (0-0.00); PLATELET COUNT 222 K/uL (150-450); RDW-CV 16.9 % (11.9-14.6); WBC 10.9 K/uL (4.0-11.0)
[2016-09-30 18:01] LABS: INR - (THERAPEUTIC) 1.96 (0.92-1.07); PROTIME 20.7 SECONDS (9.8-11.4); PTT 38 SECONDS (25-32)
[2016-09-30 18:06] LABS: BLOOD URINE NEGATIVE /UL (NEGATIVE); COLOR URINE YELLOW (YELLOW); GLUCOSE URINE NEGATIVE (NEGATIVE); KETONE URINE 5 mg/dL (NEGATIVE); LEUKOCYTES URINE 25 /UL (NEGATIVE); NITRITE URINE NEGATIVE (NEGATIVE); PROTEIN URINE 100 mg/dL (NEGATIVE); SPEC GRAVITY URINE 1.015 (1.003-1.035); TURBIDITY URINE CLEAR (CLEAR); UROBILINOGEN URINE NORMAL (NORMAL)
[2016-09-30 18:10] LABS: ALBUMIN 3.1 gm/dL (3.5-5.0); ALK PHOS 86 IU/L (33-138); ALT 53 IU/L (12-78); AST 43 IU/L (10-40); BLOOD UREA NITROGEN 34 mg/dL (6-24); CALCIUM 9.2 mg/dL (8.5-10.5); CHLORIDE 100 mMol/L (96-110); CO2 27 mMol/L (22-32); CPK 32 IU/L (21-215); CREATININE 2.1 mg/dL (0.5-1.1); ESTIMATED GFR (MDRD EQUATION) 23; MAGNESIUM 2.3 mg/dL (1.8-2.6); SODIUM 135 mMol/L (135-145); TOTAL BILIRUBIN 0.3 mg/dL (0.0-1.5); TOTAL PROTEIN 6.9 g/dL (6.0-8.4)
[2016-09-30 18:14] LABS: ANION GAP 14.6 (10.0-19.0); POTASSIUM 6.6 mMol/L (3.7-5.1)
[2016-09-30 18:16] LABS: AMORPHOUS URINE 3+ (NEGATIVE); BACTERIA URINE RARE (NEGATIVE); RBC URINE RARE #/HPF (NEGATIVE)
[2016-09-30] MEDS ORDERED: BROVANA15 MCG/2 M INH (20:30)
[2016-09-30] MEDS ORDERED: PULMICORT1 MG/2 ML INH (20:37)
[2016-09-30] MEDS ORDERED: NITROSTAT0.4 MG SL (20:38)
[2016-09-30] MEDS ORDERED: BENADRYL25 MG PO (20:39)
[2016-09-30] MEDS ORDERED: TRIACET 0.1% 8080 GM TOP (20:43)
[2016-09-30] MEDS ORDERED: PROCTOSOL-HC28.35 GM TOP (20:44)
[2016-09-30] MEDS ORDERED: ALEVE220 M1 (20:45)
[2016-09-30] MEDS ORDERED: FLONASE 50 MCG/16 GM NOSE (20:45)
[2016-09-30] MEDS ORDERED: ZADITOR5 ML OPHTH (20:45)
[2016-09-30 22:51] LABS: ANION GAP 13.1 (10.0-19.0); CALCIUM 8.7 mg/dL (8.5-10.5); CREATININE 2.3 mg/dL (0.5-1.1); MAGNESIUM 2.1 mg/dL (1.8-2.6); PHOSPHORUS 3.2 mg/dL (2.5-4.9)
[2016-09-30 22:52] LABS: POTASSIUM 5.1 mMol/L (3.7-5.1)
[2016-10-01 04:38] LABS: BASOPHIL % 0.4 %; EOSINOPHIL # 0.2 K/uL (0.0-0.5); EOSINOPHIL % 1.9 %; HEMATOCRIT 31.8 % (33.0-46.0); HEMOGLOBIN 9.2 g/dL (10.0-15.0); IMMATURE GRANULOCYTE # 0.1 K/uL (0.0-0.3); IMMATURE GRANULOCYTE % 1.2 %; LYMPHOCYTE # 1.2 K/uL (0.8-4.0); LYMPHOCYTE % 13.3 %; MCH 23.4 pg (27.0-34.0); MCHC 28.9 gm/dL (32.0-36.5); MCV 80.7 fl (83.0-98.0); MPV 10.6 fl (9.4-12.4); NEUTROPHIL # (ANC) 6.6 K/uL (1.8-7.8); NEUTROPHIL % 72.2 %; NRBC % 0 /100WBC (0-0.00); RBC 3.94 M/uL (3.50-5.50); RDW-CV 17.1 % (11.9-14.6); WBC 9.2 K/uL (4.0-11.0)
[2016-10-01 04:40] LABS: PLATELET COUNT 175 K/uL (150-450)
[2016-10-01 04:46] LABS: INR - (THERAPEUTIC) 2.23 (0.92-1.07); PROTIME 23.6 SECONDS (9.8-11.4)
[2016-10-01 05:05] LABS: ALBUMIN 2.8 gm/dL (3.5-5.0); ANION GAP 11.5 (10.0-19.0); CALCIUM 8.2 mg/dL (8.5-10.5); CREATININE 2.2 mg/dL (0.5-1.1); POTASSIUM 4.5 mMol/L (3.7-5.1); TOTAL BILIRUBIN 0.3 mg/dL (0.0-1.5); TOTAL PROTEIN 6.3 g/dL (6.0-8.4)
[2016-10-01 05:11] LABS: MAGNESIUM 2.1 mg/dL (1.8-2.6)
--- NOTE | 2016-10-01 07:03 | NUR ---
PATIENT ARRIVED TO PCU AROUND 2136 FROM ER. PATIENT CALLED EMS THIS AFTERNOON AFTER NOT FEELING WELL WITH MORE SOB THAN HER NORMAL , DECREASED UOP, DIZZINESS, AND CONSTIPATION. PATIENT ARRIVED TO ER HER HRS WERE 30-40'S. EKG SHOWED JUNCTIONAL RHYTHM. ALSO HER K+ WAS 6.6. PATIENT ADMITTED FOR BRADYCARDIA AND HYPERKALEMIA. A/0X3. AFEBRILE. HR 55. 100% ON 3L. 164/72. NO PAIN. IV TO L) FA HAS NS BOLUS RUNNING. KAYEXELATE GIVEN X2. INSULIN 10 UNITS, AND D50 10 AMPULES GIVEN.
--- NOTE | 2016-10-01 07:23 | NUR ---
Significant Event: A/0X3. BEDREST. TURNED SELF. AFEBRILE. VSS ON 3L. HR 40-60'S. SBP 140-160'S. DENIES PAIN. IV TO L) FA SL. GAVE A TOTAL OF 2L OF NS THIS SHIFT. PATIENT WAS HAVING DIFFICULTY BREATHING 3RD ASSESSMENT WITH RR 22-26, UOP OF 275 MLS. GAVE A PRN BREATHING TX AND DIDNT SEEM TO HELP MUCH. CALLED DOCTOR AND GOT ORDER FOR 80 MG OF LASIX IVP X1. GAVE KAYEXELATE X2. HAD SOME SMALL SMEARS THIS SHIFT. MIKE PRESENT WITH 275 OUT BEFORE LASIX WAS GIVEN BUT GOOD UOP AFTERWARDS. Follow up: CONTINUE WITH PLAN OF CARE. EKG THIS AM.
--- NOTE | 2016-10-01 11:26 | NUR ---
Introduced self and care management services to patient. Lives in [place] in low income apartments [address] with son. Independent living. Denies concerns about going home on discharge, denies needs. Does use O2 at home and bathroom set up for accessibility with bars at shower and toilet. Custodian Supervisor will follow.
[2016-10-01 12:15] LABS: ANION GAP 12.2 (10.0-19.0); CALCIUM 7.9 mg/dL (8.5-10.5); MAGNESIUM 1.8 mg/dL (1.8-2.6); PHOSPHORUS 3.5 mg/dL (2.5-4.9); POTASSIUM 4.2 mMol/L (3.7-5.1)
--- NOTE | 2016-10-01 16:07 | NUR ---
1600 unable to tread power glide
--- NOTE | 2016-10-01 17:19 | NUR ---
Significant Event: AFEBRILE. HR 70'S. IN & OUT OF JUCTIONAL RHYTHM. SBP'S 170-18O'S. DOWN TO 130'S WITH NORVASC RESTARTED. HAS PERIODS OF DYSNPEA WITH MINIMAL ACTIVITY, WHICH PATIENT STATES IS HER BASELINE. REMAINS ON 3L/NC PER HOME DOSE. CREAT 2.0. K+4.2. UOP 2400ML. STOOL SOFTENERS HELD D/T LOOSE STOOLS TODAY. UNABLE TO OBTAIN PERIPHERAL OR MIDLINE IV ACCESS. REFUSES FURTHER ATTEMPTS FOR IV ACCESS- DISCUSSED THE RISKS OF NO IV ACCESS IN REGARDS TO HER CONDITION. MD AWARE. UP IN CHAIR BRIEFLY. REFUSES TO AMBULATE WITH STAFF. APPETITE GOOD. BLOOD SUGARS 200'S. REQUESTS SEVERAL PRN NEBULIZERS-DOES HAVE HER BEDSIDE XOPENEX. Follow up: STRICT I&O. POSSIBLE HOME TOMORROW.
[2016-10-01 18:20] LABS: CALCIUM 8.4 mg/dL (8.5-10.5); CREATININE 1.8 mg/dL (0.5-1.1); MAGNESIUM 1.9 mg/dL (1.8-2.6); PHOSPHORUS 3.6 mg/dL (2.5-4.9)
[2016-10-01 23:36] LABS: CALCIUM 8.6 mg/dL (8.5-10.5)
[2016-10-01 23:47] LABS: ANION GAP 15.2 (10.0-19.0); CREATININE 1.6 mg/dL (0.5-1.1); PHOSPHORUS 3.3 mg/dL (2.5-4.9); POTASSIUM 4.2 mMol/L (3.7-5.1)
[2016-10-01 23:48] LABS: MAGNESIUM 1.8 mg/dL (1.8-2.6)
[2016-10-02 04:25] LABS: ALBUMIN 2.7 gm/dL (3.5-5.0); ANION GAP 13.2 (10.0-19.0); CALCIUM 8.2 mg/dL (8.5-10.5); CREATININE 1.5 mg/dL (0.5-1.1); MAGNESIUM 1.8 mg/dL (1.8-2.6); PHOSPHORUS 3.2 mg/dL (2.5-4.9); POTASSIUM 4.2 mMol/L (3.7-5.1)
--- NOTE | 2016-10-02 05:22 | NUR ---
Significant Event: TYLENOL GIVEN X1 FOR A HEADACHE. PT THINKS HER GUILLORY IS FROM BREATHING SO HARD. UP AND DOWN TO THE CHAIR ALL NIGHT. INCONT OF STOOL X2. EMESIS X1. INCREASED TO 4L PER NC DUE TO DECREASED O2. PT SLEEPING OFF AND ON ALL NIGHT. Follow up:
[2016-10-02 10:20] LABS: ANION GAP 11.1 (10.0-19.0); CALCIUM 8.2 mg/dL (8.5-10.5); CREATININE 1.4 mg/dL (0.5-1.1); MAGNESIUM 1.8 mg/dL (1.8-2.6); PHOSPHORUS 2.6 mg/dL (2.5-4.9); POTASSIUM 4.1 mMol/L (3.7-5.1)
--- NOTE | 2016-10-02 13:07 | NUR ---
reviewed student charting and on the floor from [id number] ravindra pratt-ccc
--- NOTE | 2016-10-02 15:35 | NUR ---
Significant Event: Patient is alert and oreinted x3. VSS and on 3 liters. This afternoon BP jumped in to the 170's. Dr. De La Cruz was notified and ordered to just continue to monitor. Up with SBA. R)Hand IV, SL. Accuchecks AC/HS. This afternoon the patient had a bad dream and became very anxious and had labored breathing. Xanax given and patient did calm down. PRN breathing tx given and it did help. Wheezing noted in the lungs. Lasix IV given x1. Levemir 10 units ordered for daily and given. Tylenol given this am, relief noted. Sands cath in place, good urine output. Continues to be incontient of stool. Cooperative with cares.
[2016-10-02 23:15] LABS: ANION GAP 14.1 (10.0-19.0); CALCIUM 8.3 mg/dL (8.5-10.5); CREATININE 1.4 mg/dL (0.5-1.1); MAGNESIUM 1.6 mg/dL (1.8-2.6); POTASSIUM 4.1 mMol/L (3.7-5.1)
--- NOTE | 2016-10-03 04:51 | NUR ---
PATIENT IS A&OX3 THIS SHIFT. VVS AND ON 3L PER N/C. PATIENT IS UP WITH SBA, USE OF WALKER AND GAITBELT. PATIENT REQUESTS PRN XANAX FOR ANXIETY. ON BREATHING TREATMENTS FOR CHRONIC COPD. ACCUCHECK ACHS, HS ACCUCHECK READS 176. PATIENT RESTS COMFORTABLY FOR MOST OF NIGHT. C/O H/A, PRN TYLENOL GIVEN. INCONTINENT OF BOWEL X1. EMESIS X1 DUE TO "MUCOUS IN STOMACH." R) HAND IV SL. FLUSHES WELL.
[2016-10-03 16:47] LABS: ANION GAP 10.8 (10.0-19.0); CALCIUM 8.2 mg/dL (8.5-10.5); CREATININE 1.3 mg/dL (0.5-1.1); POTASSIUM 3.8 mMol/L (3.7-5.1)
--- NOTE | 2016-10-03 19:08 | NUR ---
Significant event: Patient is alert and oriented x3. VSS. On 4liters of O2 per NC. Xanax q 4hours prn. IV to right hand, saline locked. ACHS accuchecks with coverage given at breakfast. Tele reported a emily of PVC's at 1000. NO further calls. Ambulates with stand by assit and walker. Shavon is patent. Tylenol given x1. Patient up to chair several times today. Cooperative with cares.
[2016-10-04 03:50] LABS: ALBUMIN 2.3 gm/dL (3.5-5.0); ANION GAP 10.1 (10.0-19.0); CALCIUM 8.3 mg/dL (8.5-10.5); CREATININE 1.3 mg/dL (0.5-1.1); PHOSPHORUS 3.2 mg/dL (2.5-4.9); POTASSIUM 4.1 mMol/L (3.7-5.1); TOTAL PROTEIN 6.4 g/dL (6.0-8.4)
[2016-10-04 03:52] LABS: TOTAL BILIRUBIN 0.7 mg/dL (0.0-1.5)
--- NOTE | 2016-10-04 04:27 | NUR ---
PATIENT A&OX3 THIS SHIFT. VVS AND WEANED TO 3L PER N/C FROM 6L. PATIENT IS UP WITH SBA AND USE OF WALKER AND GAITBELT. PATIENT REQUESTS PRN Q4 XANAX X3 THIS SHIFT. ON BREATHING TREATMENTS FOR SOB, CHRONIC COPD. ACCUCHECKS ACHS. LAST CHECK READS 275. PATIENT SEEMS ANXIOUS FOR FIRST HALF OF SHIFT, CALMS AFTER GETTING SOME REST. C/O H/A AND IS GIVEN TYLENOL THAT RESOLVED PAIN. R) HAND IVSL, FLUSHES SLUGGISH.
--- NOTE | 2016-10-04 16:21 | NUR ---
Significant Event: Patient is alert and oriented x3. Respirations 20-30's. COPDer. Titrated o2 between 4-6 liters. Wears 3 liters at home. Has been requesting breathing treatments and xanax every 4 hours. Last xanax and tx was at 1525. Relief noted. Expiratory wheezes noted in lung sounds. Fine crackles in the bases. Lasix x1 given IV. Sands in place. Possibly to come out tomorrow per video engineer. Stated her nose congestion is better, flonase given this am. Up with SBA and walker. Did sit in the chair this afternoon, but needs encouragement to do so. R)hand Iv, SL. Accuchecks AC/HS. Ian pain. Trace 1+ edema throughout. Cooperative with cares. Self turns
--- NOTE | 2016-10-05 05:06 | NUR ---
Significant Event: A/0 X 3, VERY AGITATED. HAVE GIVEN XANAX Q4 HOURS. AFIB RATES 60-70'S. AFEBRILE. 02 RUNNING BETWEEN 4-6 L, CRACKLES REMAIN IN BILATERAL BASES. PRN RESPIRATORY TREATMENTS HAVE BEEN GIVEN EVERY 4 HOURS. MC[place] 1200 UOP, POSSIBLY D/C MCKEON TODAY PER MAX. DID FALL ASLEEP AROUND 0300. TYLENOL GIVEN X 1 AT 2200 FOR HEADACHE. KIANA TO SEE TODAY. Follow up:
[2016-10-05 05:39] LABS: ALBUMIN 2.3 gm/dL (3.5-5.0); ANION GAP 14.2 (10.0-19.0); CALCIUM 7.9 mg/dL (8.5-10.5); CREATININE 1.1 mg/dL (0.5-1.1); MAGNESIUM 2.1 mg/dL (1.8-2.6); PHOSPHORUS 4.3 mg/dL (2.5-4.9); POTASSIUM 5.2 mMol/L (3.7-5.1)
--- NOTE | 2016-10-05 11:02 | NUR ---
PT SCREENED D/T LOS. EST NEEDS: [id number] KCALS, 64-77 GM PROTEIN, 1 ML/KCAL FLUIDS. NO NUTRITION-RELATED DX IDENTIFIED. WILL ASSIST NEEDED.
[2016-10-05 11:12] LABS: CALCIUM 8.2 mg/dL (8.5-10.5); CREATININE 1.3 mg/dL (0.5-1.1)
--- NOTE | 2016-10-05 12:42 | NUR ---
Talked with patient, her plan is still to go home to her independent apartment on discharge, son lives with her. Discussed Home Health and she would be agreeable to have HH visit her at home. Asked her about doing physical therapy here if ordered and she said no, gets too short of breath. Left note for physician with pt plan and the above. Sales Department Supervisor will follow.
--- NOTE | 2016-10-05 18:57 | NUR ---
Significant event: Patient is alert, sleepy at times, easily agitated, anxious. Orienetd x 3, but forgetful, yells out. HR 60's. Afebrile. Zofran given at 0740, for 50 ml emesis. Was helping set up patients lunch, and patient had choked on pancakes, got a bedside swallow study, per speech may have a stricture, will have a modified barium swallow study in AM. Patient has been requiring between 4-8 L O2 Simple mask. Lasix 40 MG IV given, with 1,050 ml UOP. Fine crackles to bases of lungs. Breathing labored at times. Has taken off her oxygen a few times, with O2 sats quickly dropping, and takes 5-10 minutes to recover. Xanax given twice, patient frequently askes for this medication about every 1-2 hours. Xanax discontinued, and haldol IV PRN available if needed. Tylenol given at shift change. Patient had 1 smear. Follow Up: Continue current POC, orient as needed, Monitor respiratory status closely, bedalarm at all times.
[2016-10-05 20:54] LABS: PO2 62 mmHg (80-90)
[2016-10-05 21:02] LABS: PCO2 77 mmHg (35-45)
[2016-10-05 23:12] LABS: BASOPHIL % 0.4 %; EOSINOPHIL # 0.1 K/uL (0.0-0.5); EOSINOPHIL % 1.1 %; HEMATOCRIT 28.8 % (33.0-46.0); HEMOGLOBIN 8.4 g/dL (10.0-15.0); IMMATURE GRANULOCYTE # 0.1 K/uL (0.0-0.3); IMMATURE GRANULOCYTE % 1.3 %; LYMPHOCYTE # 0.6 K/uL (0.8-4.0); LYMPHOCYTE % 6.7 %; MCH 23.5 pg (27.0-34.0); MCHC 29.2 gm/dL (32.0-36.5); MCV 80.4 fl (83.0-98.0); MONOCYTE # 0.8 K/uL (0.0-1.0); MONOCYTE % 9.2 %; MPV 10.3 fl (9.4-12.4); NEUTROPHIL # (ANC) 7.4 K/uL (1.8-7.8); NEUTROPHIL % 81.3 %; NRBC % 0.4 /100WBC (0-0.00); PLATELET COUNT 206 K/uL (150-450); RBC 3.58 M/uL (3.50-5.50); RDW-CV 16.9 % (11.9-14.6); WBC 9.2 K/uL (4.0-11.0)
[2016-10-06 01:13] LABS: BICARBONATE 39.3 mmol/L (18.0-23.0); PCO2 68 mmHg (35-45)
[2016-10-06 01:14] LABS: PO2 85 mmHg (80-90)
--- NOTE | 2016-10-06 04:17 | NUR ---
PATIENT WAS NOT ORIENTATED TO TIME OR PLACE AROUND 2100 THIS SHIFT. WAS VERY LETHARGIC AND COULD NOT REMAIN O2 SATS ABOVE 90% ON SIMPLE MASK AT 12L. PHYSICIAN IN TO SEE PATIENT AND D/C XANAX R/T TO LETHARGY AND WROTE FOR HALDOL 2.5MG Q6. PATIENT SATS CONTINUED TO TREND DOWN. DR HAINES CALLED IN TO SEE PATIENT. ORDERED 60MG IV LASIX, ABG, CXR, AND TO BEGIN BIPAP. BIPAP PLACED AT 2100 AND TO KEEP SATS 88-92%. FIRST ABG CAME BACK WITH A CO2 OF 77. REPEAT ABGS AT 0100 CO2 68. CBC AND PROCAL ORDERED. BLOOD CULTURES ORDERED X2. PATIENT MCKE[place] CATH REMAINS IN PLACE AND HAS OUTPUT OF 1,125. PATIENT IRRITABLE WHEN AWOKEN AND WAS GIVEN HALDOL AT 2229 FOR AGITATION. REQUESTING MORE HALDOL WHEN NEXT DOSE IS AVAILABLE. BIPAP SET AT 50% FI02 TO KEEP SATS >90& AT THIS TIME. ACCUCHECK 241. TO CON'T WITH PLAN OF CARE.
[2016-10-06 05:16] LABS: ALBUMIN 2.2 gm/dL (3.5-5.0); ANION GAP 9.4 (10.0-19.0); CALCIUM 8.3 mg/dL (8.5-10.5); CREATININE 1.4 mg/dL (0.5-1.1); PHOSPHORUS 3.5 mg/dL (2.5-4.9); POTASSIUM 4.4 mMol/L (3.7-5.1)
[2016-10-06 09:48] LABS: INR - (THERAPEUTIC) 3.31 (0.92-1.07); PROTIME 35.2 SECONDS (9.8-11.4)
--- NOTE | 2016-10-06 16:50 | NUR ---
Significant events: Patient is oriented x 3. Drowsy and forgetful throughout day. As day goes on, patient got anxious and irritable. Haldol given. 2+ generalized edema. Heart rates ranging from 63-65. SBP ranging from 126-138. Bipap 40-50% FiO2 on and off throughout day, when off 6 L o2 nasal canula. Lungs clear and diminished in upper lobes, crackles in lower lobe. 850 mL out of aviles today. 500 mg Diamox given at 1410. Placed on fluid restriction today of 1200 mL. Coumadin 2 mg given. KUB today, awaiting results. Good appetite. Bowel sounds hypoactive. No bowel movement today. Follow up: Continue plan of care. Monitor urine output and bowel movements. Monitor respiratory status. Encourage movement.
--- NOTE | 2016-10-07 04:54 | NUR ---
Significant Event: A/O, patient needs frequent reminders to use call light instead of yelling "help", VSS on 6L/nasal canula, patient refused to wear bipap for more than 20 minutes overnight, very restless, up to chair and back multiple times, patient recieved Haldol, benedryl, Tylenol, and Seroquel for sleep, very impatient with RNs, banging call light on bed to get someones attention, patient asked to be more respectful to the other patients here and with RNs, patient behavior continues Follow up: continue with plan of care
[2016-10-07 05:47] LABS: PROTIME 43.5 SECONDS (9.8-11.4)
[2016-10-07 05:50] LABS: INR - (THERAPEUTIC) 4.08 (0.92-1.07)
[2016-10-07 05:52] LABS: ALBUMIN 2.4 gm/dL (3.5-5.0); ANION GAP 11.2 (10.0-19.0); CALCIUM 8.5 mg/dL (8.5-10.5); CREATININE 1.3 mg/dL (0.5-1.1); MAGNESIUM 2.2 mg/dL (1.8-2.6); PHOSPHORUS 3.2 mg/dL (2.5-4.9); POTASSIUM 4.2 mMol/L (3.7-5.1)
--- NOTE | 2016-10-07 14:13 | NUR ---
Social visit with Zandra today. We discussed her discharge plans. At this time she is planning on going home. She states that her son and daughter will be there to help her. I attempted to talak with her about a skilled stay. She refused to talk about going to "a [facility]". She is agreeable to home health on discharge. Will continue to follow.
--- NOTE | 2016-10-07 15:27 | NUR ---
Significant events: Patient is alert and oriented today. Very anxious, agitated, and irritable on and off throughout day. Haldol 2.5mg given every 6 hours, last given at 1300. When given, patient is less anxious, less irritable, and less agitated. Patient is forgetful and has to be reminded often. INR 4.08 this AM, held Coumadin today. O2 saturations in 90's on 4-6 L/min O2. Lungs are clear in upper lobes, fine crackles in bilateral lower lobes intermittently. Occasional, productive cough. Requests frequent breathing treatments, given every 4 hours. Patient denies pain throughout day, execpt when agititated, states headache at 8/10. Tylenol 650 mg given in the 1100 hour. Bowel sounds hypoactive, large bowel movement this afternoon. Chest CT done this AM. Total intake of 800 mL; total output of 1400 mL. Bed bath this afternoon. Follow up: Encourage movement and ambulation. Daily INR. Monitor respiratory status. OT and PT to work with patient. Monitor intake and output. Fluid restriction of 1200 mL. Continue plan of care. MUST DO DAILY STANDING WEIGHTS.
[2016-10-08 06:30] LABS: INR - (THERAPEUTIC) 3.28 (0.92-1.07); PROTIME 34.9 SECONDS (9.8-11.4)
[2016-10-08 06:38] LABS: ALBUMIN 2.7 gm/dL (3.5-5.0); ANION GAP 9.3 (10.0-19.0); CALCIUM 8.6 mg/dL (8.5-10.5); CREATININE 1.2 mg/dL (0.5-1.1); MAGNESIUM 2.1 mg/dL (1.8-2.6); PHOSPHORUS 3.6 mg/dL (2.5-4.9); POTASSIUM 4.3 mMol/L (3.7-5.1)
--- NOTE | 2016-10-08 06:48 | NUR ---
Significant Event: Patient has been alert/oriented x3. Did not sleep throughout the entire night. Patient has been requesting PRN Haldol around the clock. Was on 4L O2 until around 0500 in which she was noted to have increased work of breathing. O2 increased to 6L. Patient refused BiPAP throughout the night but was able to convince her to be put on BiPAP since she was having increased shortness of breath. She only kept BiPAP on for 45 minutes. Lung sounds have been coarse/crackles at times and she has been expectorating sputum. Sands in place with 1000 mL out. Continues to be on 1200 mL fluid restriction. Two large bowel movements last night. Tylenol PRN for headache. Follow up: Continue to monitor per plan of care.
--- NOTE | 2016-10-08 15:55 | NUR ---
SIGNIFICANT EVENT: PT HAS LABORED/DIMINISHED LUNG SOUNDS. Rt has switched between 4-6L nasal cannula and the Bipap machine at 35% fio2. Sands output at 1850, clear and yellow. BPs have been high in the 170s-180s systolic. Heart rates 50s-60s. Patient remains irritable and agitated with frequent calls. Patient ambulates with 1 assist, gatebelt/walker.
--- NOTE | 2016-10-09 04:53 | NUR ---
A/O. HR 60-70s. SBP 130-160s. LABORED BREATHING. PURSED LIPS AT TIMES. 6-8L SIMPLE MASK. BIPAP ON FROM 0015 TILL TIME OF THIS NOTE. AFEBRILE. YELLS OUT FREQUENTLY. AGITATED AT TIMES. HALDOL x2. [facility] INTACT 1250ML UOP.
[2016-10-09 05:30] LABS: INR - (THERAPEUTIC) 2.66 (0.92-1.07); PROTIME 28.2 SECONDS (9.8-11.4)
[2016-10-09 05:42] LABS: ALBUMIN 2.7 gm/dL (3.5-5.0); ANION GAP 11.1 (10.0-19.0); CALCIUM 8.8 mg/dL (8.5-10.5); CREATININE 1.1 mg/dL (0.5-1.1); PHOSPHORUS 3.7 mg/dL (2.5-4.9); POTASSIUM 4.1 mMol/L (3.7-5.1)
--- NOTE | 2016-10-09 15:13 | NUR ---
Social visit with patient today. We discussed discharge plans. She is planning on returning home. I did ask if she was still intrested in home health. She stated she was. I gave her the options of [facility] or [facility]. She chose . I called and spoke with Kathryn rolle [facility] and faxed referral information. Face to face is on chart. I place a fax cover sheet on chart incase patient is discharged over the weekend. Will conitnue to follow.
--- NOTE | 2016-10-09 16:31 | NUR ---
SIGNIFICANT EVENT: Pt remains agitated and irritable to cares. Continues to use call light Q15 minutes. Currently on 6L nasal cannula with clear and diminished lung sounds. Regular heart and bowel sounds. Intermitent productive cough with yellow/brown sputum. Pt reports aching pain at a 9 in the head and back. Ambulated to windown from bed. Refused show, no stools. Sands output at 2350ml for shift with oral input at 550ml.
[2016-10-10 03:39] LABS: INR - (THERAPEUTIC) 2.15 (0.92-1.07); PROTIME 22.8 SECONDS (9.8-11.4)
[2016-10-10 03:40] LABS: ALBUMIN 2.9 gm/dL (3.5-5.0); ANION GAP 11.7 (10.0-19.0); CALCIUM 9.4 mg/dL (8.5-10.5); CREATININE 1.1 mg/dL (0.5-1.1); MAGNESIUM 1.9 mg/dL (1.8-2.6); PHOSPHORUS 3.9 mg/dL (2.5-4.9); POTASSIUM 3.7 mMol/L (3.7-5.1)
--- NOTE | 2016-10-10 04:39 | NUR ---
Significant Event: Patient A/Ox3 but very forgetful. VSS on 4L. Patient is agitated and irritable. Calls every 5 minutes but does not remember why she has called. Patient has not slept at all this shift. Up 1-assist with walker and gait blet. Evening BS was 142, so no insulin given. Xanax given at 2330, but did not seem to help at all. 2025ml out of aviles. 1200ml fluid restriction. Follow up: Continue titrating O2.
--- NOTE | 2016-10-10 19:03 | NUR ---
Significant Event: Alert & oriented, forgetful. Frequent call light use. Titrated to 4L O2, labored breathing, resp rate 20-24. HR Afib 80-100 at rest, up to 150 at times, MD notified. Pureed diet, pills whole, fluid restrict 1200ml. Sands. Xanax and APAP given x1. Accucheck ACHS, no sliding scale given. 1 assist, walker, gaitbelt.
[2016-10-11 04:39] LABS: INR - (THERAPEUTIC) 1.99 (0.92-1.07)
[2016-10-11 04:42] LABS: ALBUMIN 2.9 gm/dL (3.5-5.0); ANION GAP 11.4 (10.0-19.0); CALCIUM 8.9 mg/dL (8.5-10.5); CREATININE 1.2 mg/dL (0.5-1.1); MAGNESIUM 1.8 mg/dL (1.8-2.6); PHOSPHORUS 3.5 mg/dL (2.5-4.9); POTASSIUM 3.4 mMol/L (3.7-5.1)
--- NOTE | 2016-10-11 05:37 | NUR ---
Patient A/Ox3 but forgetful. 1 assist w/walker. Lungs clear/rales in bases, SOB, 3L O2. Bowel sounds present, no BM this shift. Sands 1350 out. Tylenol x2 for headache or back pain, relief noted. No insulin given. Xanax given at bedtime. Bed/Chair alarm needed.
--- NOTE | 2016-10-11 19:27 | NUR ---
Significant Event: A&O, VSS, afebrile, 3L O2 -home dose. 1 assist. Sands. Accuchek ACHS. 1 small hard BM this shift. Xanax given x1. Replacing potassium PO. Increased Metoprolol for HR. Home Wednesday/Wednesday?
--- NOTE | 2016-10-12 03:53 | NUR ---
Significant Event: A&Ox3, forgetful. Agitation with staff at times. HTN, SBP: 160s-140s. Patient transfers with 1PA, walker/GB, SOB with activity. Xanax and tylenol given with HS meds. Patient up and demanding with cares at 0300, encouraged to rest. Sands intact with good output. Sands patent with good out put. Will pull in AM. Follow up: Possible D/C today or tomorrow.
[2016-10-12 03:59] LABS: INR - (THERAPEUTIC) 1.97 (0.92-1.07); PROTIME 20.8 SECONDS (9.8-11.4)
[2016-10-12 04:06] LABS: ANION GAP 11.5 (10.0-19.0); CALCIUM 8.9 mg/dL (8.5-10.5); CREATININE 1.4 mg/dL (0.5-1.1); MAGNESIUM 1.9 mg/dL (1.8-2.6); PHOSPHORUS 3.7 mg/dL (2.5-4.9)
[2016-10-12 04:07] LABS: POTASSIUM 4.5 mMol/L (3.7-5.1)
[2016-10-12 12:33] LABS: HEMATOCRIT 31.1 % (33.0-46.0); MCH 23.5 pg (27.0-34.0); MCHC 28.9 gm/dL (32.0-36.5); MCV 81.2 fl (83.0-98.0); MPV 9.9 fl (9.4-12.4); RBC 3.83 M/uL (3.50-5.50); RDW-CV 18.2 % (11.9-14.6); WBC 9.7 K/uL (4.0-11.0)
[2016-10-12 13:01] LABS: PLATELET COUNT 346 K/uL (150-450)
[2016-10-12 13:06] LABS: ABSOLUTE NEUTROPHIL CT (ANC) 7.6 K/uL (1.8-7.8); BANDED NEUTROPHIL # 0.1 K/uL (0.0-0.1); BANDED NEUTROPHILS % 1 %; LYMPHOCYTE # 1.6 K/uL (0.8-4.0); LYMPHOCYTE % 16 %; MONOCYTE # 0.4 K/uL (0.0-1.0); SEGMENTED NEUTROPHIL # 7.5 K/uL (1.8-7.8); SEGMENTED NEUTROPHIL % 77 %
--- NOTE | 2016-10-12 19:04 | NUR ---
Significant Event: A/O x3, forgetful at times; patient can become aggitated et rude with staff at times. VSS, SBPs 110-140s, HRs 70-90s, oxygen at 3 liters as per home. Tylenol given x2, last at 1522, for c/o pain; relief noted. Xanax given at 0721. Recieved Albumin this shift; will get one more dose. Refusing to work with PT/OT; patient up in room to bathroom with assist of 1 et walker; patient needs to have bed/tabs alarms at all times as will take self to bathroom. Follow up: beside spirometry needs to be completed
--- NOTE | 2016-10-12 21:17 | NUR ---
PT REFUSED BEDSIDE SPIROMETRY AT THIS TIME DUE TO FATIGUE. PT WOULD LIKE TO TRY TEST IN THE MORNING.
--- NOTE | 2016-10-13 03:17 | NUR ---
Significant Event:PT AAOX3.PLEASANT WITH STAFF AND CARES.WAS BUSINESS LIBRARIAN LIGTH VERY OFTEN HOWEVER WAS PLESANT. UP WITH STAND BY/1 ASSIST, DOES WELL. CONTIENT OF BOWEL AND BLADDER. DID HAVE 5 BEATS OF VTACH.VSS. ACHS, HS BLOOD SUGAR 114. IV TO LEFT HAND SL.PT LUNG SOUNDS CLEAR/DIMINSHED. ON 3L NC. SOB WITH ACTIVITY. DENIES PAIN WHEN ASKED. USES CALL LIGHT APPROP. Follow up:
[2016-10-13 05:46] LABS: INR - (THERAPEUTIC) 2.17 (0.92-1.07)
[2016-10-13 05:56] LABS: ALBUMIN 3.4 gm/dL (3.5-5.0); CALCIUM 8.7 mg/dL (8.5-10.5); CREATININE 1.3 mg/dL (0.5-1.1); MAGNESIUM 1.9 mg/dL (1.8-2.6); PHOSPHORUS 3.7 mg/dL (2.5-4.9)
--- NOTE | 2016-10-13 13:20 | NUR ---
Patient has signed discharge orders on chart. She will be discharge to home with [facility]. Called and notified [facility] of discharge. Discharge orders faxed.
[2016-10-13] MEDS ORDERED: DIAMOX250 MG PO (13:44)
[2016-10-13] MEDS ORDERED: NORVASC10 MG PO (13:45)
[2016-10-13] MEDS ORDERED: NOVOLOG100 UNIT/M SUB-Q (14:05)
[2016-10-13] MEDS ORDERED: COUMADIN ** 9/62 MG PO (14:22)
[2016-10-13] MEDS ORDERED: GLUCAGON 1 MG PE1 MG SUB-Q (14:40)
[2016-10-13] MEDS ORDERED: GLUCOSE1 EACH PO (14:44)
--- NOTE | 2016-10-13 15:38 | NUR ---
Diabetes consult: Patient is being discharged to home today and will begin Novolog mild correction. Patient reports having taken levemir at home by use of vial and syringe. The patient was given a handout that included the Novolog mild correction scale. Dosing and timing of insulin with meals was reviewed. The patient was able to verbalize the correct insulin to dose given blood sguar scenarios. Hypo and hyperglycemia protocol reviewed. Denies any concerns or questions.
--- NOTE | 2016-10-13 16:30 | NUR ---
PATIENT A/OX3, FORGETFUL, IMPULSIVE AT TIMES. VSS ON 3L PER NC (HOME DOSE). PT. GETS UP SBA WITH WALKER/GAIT BELT. NO COMPLAINTS ON PAIN, DID GET TYLENOL AT 1233 FOR HEADACHE. DID COMPLAIN OF SOME NAUSEA BUT DIDN'T WANT ANYTHING FOR IT. DISMISSAL INSTRUCTIONS, NEW MEDICATIONS, MILD SLIDING SCALE INSULIN GONE OVER WITH PATIENT AND DAUGHTER. PT. IS IN A HURRY TO BE OUT OF HERE, DIDN'T WANT TO GO OVER D/C INSTRUCTIONS, TOOK HER OWN IV OUT OF LEFT HAND. ALL BELONGINGS SENT HOME WITH PATIENT AND DAUGHTER. LEFT HAND IV REMOVED PER PATIENT, SITE BRUISED BUT OK. NO FURTHER QUESTIONS AT THIS TIME.
== END 2016-10-13 15:40 | disposition home health service (06) | DRG 291 ==
LOC: GMED 17:18 → GPCU 19:03
PROVIDERS: Family Medicine; Internal Medicine Interventional Cardiology; Internal Medicine Nephrology; Nurse Practitioner Acute Care; ADMIT Internal Medicine
DX: I50.33 Acute on chronic diastolic (congestive) heart failure (principal); J96.20 Acute and chronic respiratory failure, unspecified whether with hypoxia or hypercapnia; N17.9 Acute kidney failure, unspecified; E87.3 Alkalosis; I27.2 Other secondary pulmonary hypertension; J96.11 Chronic respiratory failure with hypoxia; E86.0 Dehydration; I48.2 Chronic atrial fibrillation; Z99.81 Dependence on supplemental oxygen; I12.9 Hypertensive chronic kidney disease with stage 1 through stage 4 chronic kidney disease, or unspecified chronic kidney disease; E11.9 Type 2 diabetes mellitus without complications; E55.9 Vitamin D deficiency, unspecified; E78.5 Hyperlipidemia, unspecified; E87.5 Hyperkalemia; F32.9 Major depressive disorder, single episode, unspecified; J44.9 Chronic obstructive pulmonary disease, unspecified; N18.3 Chronic kidney disease, stage 3 (moderate); Z87.891 Personal history of nicotine dependence; Z90.722 Acquired absence of ovaries, bilateral; Z90.710 Acquired absence of both cervix and uterus; Z87.81 Personal history of (healed) traumatic fracture
CPT/HCPCS: C1751; G0237; J0610; J1120; J1162; J1630; J1940; J2405; J7030; J7040; P9047

== ENCOUNTER → 2016-11-02 | Outpatient (CLI) | payer MEDICARE, MEDICAID ==
[~2016-11-02] MED LIST changes: +ALEVE220 M1; +BROVANA15 MCG/2 M INH; +COUMADIN ** 9/62 MG PO; +DIAMOX250 MG PO; +FLONASE 50 MCG/16 GM NOSE; +GLUCAGON 1 MG PE1 MG SUB-Q; +GLUCOSE1 EACH PO; +NITROSTAT0.4 MG SL; +NOVOLOG100 UNIT/M SUB-Q; +PROCTOSOL-HC28.35 GM TOP; +PULMICORT1 MG/2 ML INH; +TRIACET 0.1% 8080 GM TOP; +ZADITOR5 ML OPHTH
[2016-11-02 15:49] LABS: INR - (THERAPEUTIC) 1.14 (0.92-1.07)
== END ==
LOC: LCNC 15:38
PROVIDERS: Internal Medicine Interventional Cardiology
PROC: 0QS03ZZ Reposition Lumbar Vertebra, Percutaneous Approach (ICD-10-PCS; principal; 2016-11-02)
PROC: 0QU03JZ Supplement Lumbar Vertebra with Synthetic Substitute, Percutaneous Approach (ICD-10-PCS; 2016-11-02)
DX: M48.56XD Collapsed vertebra, not elsewhere classified, lumbar region, subsequent encounter for fracture with routine healing (principal); I48.2 Chronic atrial fibrillation